=== PATIENT | male | born 1980 | race Caucasian/White ===

== ENCOUNTER 2024-08-27 15:16 | Emergency (ER) | payer MEDICAID ==
[~2024-08-27] VITALS: Ht 167.6 cm; Wt 66.0 kg
[2024-08-27 15:23] VITALS: O2SAT 98
[2024-08-27] MEDS: ACETAMINOPHEN 325MG TABLET PO STA (19:38)
[2024-08-27 22:55] VITALS: BP 117/81; PULSE 77; RESP 20; TEMP 37.11408; O2SAT 99
[2024-08-27] MEDS ORDERED: BENZ100C86 MT (23:46)
== END 2024-08-28 00:05 | disposition home or self-care (01) ==
LOC: ER 15:16
DX: R05.9 Cough, unspecified (principal); B34.9 Viral infection, unspecified; Z88.6 Allergy status to analgesic agent
CPT/HCPCS: 71045; 99284